=== PATIENT | male | born 1970 | race Two or more races ===

== ENCOUNTER → 2018-12-19 | Outpatient (REF) | payer BC | LOC: M SFHCLERA 17:08 | PROVIDERS: ATTEND Physician Assistant | DX: L02.811 Cutaneous abscess of head [any part, except face] (principal) ==

== ENCOUNTER → 2020-01-29 | Outpatient (CLI) | payer BC | LOC: M LABSMTC 11:48 | PROVIDERS: ATTEND Family Medicine | DX: Z11.59 Encounter for screening for other viral diseases (principal) | CPT/HCPCS: C9803; U0003 ==

== ENCOUNTER 2022-01-03 07:44 | Emergency (ER) | payer BC, OTHER ==
[~2022-01-03] VITALS: Ht 193 cm; Wt 122.7 kg
[2022-01-03 08:21] LABS: BASO # 0.1 10^3/uL (0.0-0.2); BASO % 0.7 % (0.0-1.0); EOS # 0.2 10^3/uL (0.0-0.5); EOS % 3.3 % (0.0-3.0); HEMATOCRIT 42.4 % (42.0-52.0); HEMOGLOBIN 14.7 g/dl (13.5-17.5); LYMPH # 1.9 10^3/uL (1.5-5.0); LYMPH % 26.5 % (24.0-44.0); MEAN CORPUSCULAR HEMOGLOBIN 32.6 pg (27.0-33.0); MEAN CORPUSCULAR HGB CONC 34.7 g/dl (32.0-36.5); MONO # 0.8 10^3/uL (0.0-0.8); MONO % 10.9 % (2.0-8.0); NEUTROPHILS # 4.1 10^3/uL (1.5-8.5); PLATELET COUNT, AUTOMATED 204 10^3/uL (150-450); RED BLOOD COUNT 4.51 10^6/uL (4.30-6.10)
[2022-01-03 08:33] LABS: INR 0.95; PROTHROMBIN TIME 13.1 SECONDS (12.7-14.5)
[2022-01-03 08:45] LABS: ALBUMIN 3.4 GM/DL (3.2-5.2); ALT/SGPT 39 U/L (12-78); BILIRUBIN,DIRECT 0.2 MG/DL (0.0-0.2); BILIRUBIN,TOTAL 1.2 MG/DL (0.2-1.0); BLOOD UREA NITROGEN 8 MG/DL (7-18); CALCIUM LEVEL 8.9 MG/DL (8.5-10.1); CARBON DIOXIDE LEVEL 26 MEQ/L (21-32); CHLORIDE LEVEL 110 MEQ/L (98-107); CREATININE FOR GFR 1.14 MG/DL (0.70-1.30); GLOMERULAR FILTRATION RATE > 60.0 (>56); GLUCOSE, FASTING 88 MG/DL (70-100); LIPASE 123 U/L (73-393); POTASSIUM SERUM 3.8 MEQ/L (3.5-5.1); SODIUM LEVEL 142 MEQ/L (136-145); TOTAL PROTEIN 6.9 GM/DL (6.4-8.2)
[2022-01-03 08:47] LABS: CK-MB VALUE MASS < 1.0 NG/ML (<3.6); CPK CREATINE PHOSPHOKINASE 175 U/L (39-308); MB/CK RELATIVE INDEX 0.57 (< OR =4)
[2022-01-03] MEDS ORDERED: ISOVUE-370 76% 100ML VIAL As Ordered ONE (08:56)
[2022-01-03] MEDS ORDERED: APIXABAN 5 MG TAB (ELIQUIS) PO ONE (10:40)
[2022-01-03] MEDS ORDERED: ELIQ5TAB PO (10:45)
[2022-01-03 10:50] VITALS: BP 118/80
== END 2022-01-03 11:03 | disposition home or self-care (01) ==
LOC: M ED 07:44
DX: I26.99 Other pulmonary embolism without acute cor pulmonale (principal); Z82.49 Family history of ischemic heart disease and other diseases of the circulatory system; Z88.0 Allergy status to penicillin
CPT/HCPCS: 36415; 71045; 71275; 80053; 82248; 82550; 82553; 83690; 85025; 85610; 93005; 93041; 94760; 99285; Q9967

== ENCOUNTER 2024-02-28 06:43 | Emergency (ER) | payer OTHER ==
[~2024-02-28] VITALS: Ht 193 cm; Wt 127.3 kg
[~2024-02-28 06:43] MED LIST: ELIQ5TAB PO
[2024-02-28] MEDS: BOOSTRIX VACCINE (TETANUS/DIPHTH/ACEL. PERTUSSIS) 0.5ML SYR IM ONE (07:20)
[2024-02-28] MEDS: LIDOCAINE 1% MDV 20ML VIAL SC ONE (07:49)
[2024-02-28 09:13] VITALS: BP 123/72; TEMP 97.7; O2SAT 98
[2024-02-28] MEDS: BACITRACIN OINTMENT 30GM TUBE TOP STA (09:14)
== END 2024-02-28 09:21 | disposition home or self-care (01) ==
LOC: M ED 06:43
DX: S61.223A Laceration with foreign body of left middle finger without damage to nail, initial encounter (principal); W29.8XXA Contact with other powered hand tools and household machinery, initial encounter; F17.200 Nicotine dependence, unspecified, uncomplicated; Z88.1 Allergy status to other antibiotic agents; Y92.9 Unspecified place or not applicable; Y93.89 Activity, other specified; Y99.0 Civilian activity done for income or pay; Z23 Encounter for immunization
CPT/HCPCS: 12002; 73140; 90471; 90715; 99283; J0665

== ENCOUNTER → 2024-11-16 | Outpatient (CLI) | payer OTHER | LOC: M RAD 06:40 | PROVIDERS: ATTEND Physician Assistant | DX: F17.210 Nicotine dependence, cigarettes, uncomplicated (principal) ==

== ENCOUNTER 2025-04-27 15:34 | Emergency (ER) | payer OTHER ==
[~2025-04-27] VITALS: Ht 193 cm; Wt 124.5 kg
[2025-04-27 15:41] VITALS: TEMP 97.3
[2025-04-27] MEDS ORDERED: ISOVUE-370 76% 100 ML VIAL As Ordered ONE (15:44)
[2025-04-27 15:49] LABS: VENOUS BASE EXCESS -1.7 (-2.0-2.0); VENOUS HCO3 22.4 MMOL/L (23.0-27.0); VENOUS O2 SATURATION 97.8 % (60.0-80.0); VENOUS PARTIAL PRESSURE CO2 36.5 mmHg (38.0-50.0); VENOUS PARTIAL PRESSURE O2 104.4 mmHg (30.0-50.0); VENOUS PH 7.406 UNITS (7.330-7.430); VENOUS STANDARD HCO3 23.1 MMOL/L; VENOUS TOTAL CO2 23.5 MMOL/L (24.0-28.0)
[2025-04-27 15:53] LABS: BASO # 0.0 10^3/uL (0.0-0.2); BASO % 0.5 % (0.0-1.0); EOS # 0.1 10^3/uL (0.0-0.5); EOS % 1.4 % (0.0-3.0); LYMPH # 2.4 10^3/uL (1.5-5.0); LYMPH % 40.9 % (24.0-44.0); MONO # 0.5 10^3/uL (0.0-0.8); MONO % 8.6 % (2.0-8.0); NEUTROPHILS # 2.8 10^3/uL (1.5-8.5); NEUTROPHILS % 48.3 % (36.0-66.0); PLATELET COUNT, AUTOMATED 200 10^3/uL (150-450)
[2025-04-27 16:06] LABS: INR 0.96
[2025-04-27 16:27] LABS: ALT/SGPT 22.0 U/L (7.0-40); AST/SGOT 21.0 U/L (<34); CALCIUM LEVEL 8.5 MG/DL (8.5-10.1); CARBON DIOXIDE LEVEL 24.0 MMOL/L (20-31); CHLORIDE LEVEL 111.0 MMOL/L (98-107); CREATININE FOR GFR 1.06 MG/DL (0.70-1.30); GLOMERULAR FILTRATION RATE 83.9 (>56); POTASSIUM SERUM 3.9 MMOL/L (3.5-5.1); SODIUM LEVEL 147.0 MMOL/L (136-145)
[2025-04-27 18:40] LABS: AMPHETAMINES LEVEL URINE NEGATIVE (NEGATIVE); BARBITURATES URINE NEGATIVE (NEGATIVE); BENZODIAZEPINES URINE NEGATIVE (NEGATIVE); CANNABINOIDS URINE NEGATIVE (NEGATIVE); COCAINE METABOLITE URINE NEGATIVE (NEGATIVE); METHADONE URINE NEGATIVE (NEGATIVE); OPIATES URINE NEGATIVE (NEGATIVE); PHENCYCLIDINE URINE NEGATIVE (NEGATIVE)
[2025-04-27 21:00] VITALS: BP 134/86; O2SAT 97
== END 2025-04-27 21:29 | disposition home or self-care (01) ==
LOC: M ED 15:34
DX: S12.600A Unspecified displaced fracture of seventh cervical vertebra, initial encounter for closed fracture (principal); M48.02 Spinal stenosis, cervical region; V49.40XA Driver injured in collision with unspecified motor vehicles in traffic accident, initial encounter; J98.11 Atelectasis; M50.323 Other cervical disc degeneration at C6-C7 level; Z88.1 Allergy status to other antibiotic agents; Y92.410 Unspecified street and highway as the place of occurrence of the external cause; Y93.89 Activity, other specified; Y99.9 Unspecified external cause status
CPT/HCPCS: 36415; 70450; 71045; 71260; 72125; 72128; 72131; 72141; 73140; 74177; 80048; 80076; 80307; 82077; 82150; 82803; 83605; 83690; 85025; 85610; 85730; 86850; 86900; 86901; 93005; 93041; 94760; 99285; Q9967

== ENCOUNTER → 2025-05-03 | Outpatient (CLI) | payer OTHER | LOC: M SOG 06:53 | PROVIDERS: ATTEND Orthopaedic Surgery | DX: M25.572 Pain in left ankle and joints of left foot (principal) ==

== ENCOUNTER → 2025-05-08 | Outpatient (CLI) | payer OTHER | LOC: M SOG 06:47 | PROVIDERS: ATTEND Orthopaedic Surgery | DX: M16.11 Unilateral primary osteoarthritis, right hip (principal) ==

== ENCOUNTER 2025-05-24 11:06 | Emergency (ER) | payer OTHER ==
[~2025-05-24] VITALS: Ht 193 cm; Wt 124.2 kg
[2025-05-24] MEDS: GABAPENTIN 300 MG CAP PO ONE (13:27)
[2025-05-24 14:47] VITALS: BP 139/93; TEMP 97.6; O2SAT 99
== END 2025-05-24 14:57 | disposition home or self-care (01) ==
LOC: M ED 11:06
DX: S12.600S Unspecified displaced fracture of seventh cervical vertebra, sequela (principal); R20.2 Paresthesia of skin; V49.40XA Driver injured in collision with unspecified motor vehicles in traffic accident, initial encounter; M48.061 Spinal stenosis, lumbar region without neurogenic claudication; M48.02 Spinal stenosis, cervical region; K21.9 Gastro-esophageal reflux disease without esophagitis; M54.50 Low back pain, unspecified; F17.200 Nicotine dependence, unspecified, uncomplicated; Z88.1 Allergy status to other antibiotic agents; Y92.410 Unspecified street and highway as the place of occurrence of the external cause; Y93.89 Activity, other specified; Y99.9 Unspecified external cause status

== ENCOUNTER → 2025-06-07 | Outpatient (CLI) | payer OTHER | LOC: M RAD 09:10 | PROVIDERS: ATTEND Nurse Practitioner Family | DX: S12.601A Unspecified nondisplaced fracture of seventh cervical vertebra, initial encounter for closed fracture (principal); Y92.9 Unspecified place or not applicable; Y93.9 Activity, unspecified ==

== ENCOUNTER → 2025-06-07 | Outpatient (CLI) | payer OTHER | LOC: M RAD 10:34 | PROVIDERS: ATTEND Neurological Surgery | DX: M54.2 Cervicalgia (principal) ==